=== PATIENT | female | born 1955 | race Caucasian/White ===

== ENCOUNTER → 2016-08-21 | Outpatient (CLI) | payer MEDICARE, BC ==
[~2016-08-21] MED LIST: ALDACTONE 25MG25 MG PO; PRILOSEC40 M1 PO
== END ==
LOC: LAB 10:16
DX: Z00.00 Encounter for general adult medical examination without abnormal findings (principal); I10 Essential (primary) hypertension; K90.89 Other intestinal malabsorption

== ENCOUNTER 2016-09-07 22:25 | Emergency (ER) | payer MEDICARE, BC ==
[~2016-09-07 22:25] MED LIST changes: -ALDACTONE 25MG25 MG PO
[2016-09-07] MEDS ORDERED: ALDACTONE 25MG25 MG PO (22:29)
[2016-09-08 00:49] VITALS: BP 149/74
== END 2016-09-08 00:49 | disposition home or self-care (01) ==
LOC: ED 22:25
DX: R10.11 Right upper quadrant pain (principal); R10.13 Epigastric pain; R11.10 Vomiting, unspecified; K21.9 Gastro-esophageal reflux disease without esophagitis; Z91.138 Patient's unintentional underdosing of medication regimen for other reason
CPT/HCPCS: J1885; J2405

== ENCOUNTER → 2016-09-09 | Outpatient (CLI) | payer MEDICARE, BC ==
[2016-09-08 00:49] VITALS: BP 149/74
[~2016-09-09] MED LIST changes: +ALDACTONE 25MG25 MG PO
== END ==
LOC: RAD 09:10
DX: R10.11 Right upper quadrant pain (principal); R11.10 Vomiting, unspecified; K80.20 Calculus of gallbladder without cholecystitis without obstruction; K76.89 Other specified diseases of liver

== ENCOUNTER → 2017-10-27 | Outpatient (CLI) | payer MEDICARE, BC ==
[2017-10-27 14:15] LABS: BASO # 0.1 (0.02-0.10); EOS # 0.4 (0.04-0.40); EOS % 4.1 % (1.0-5.0); HEMATOCRIT 40.2 % (37.0-47.0); HEMOGLOBIN 12.8 g/dL (12.5-16.0); MEAN CELL VOLUME 82 fl (78-100); MEAN CORPUSCULAR HEMOGLOBIN 26 pg (27-31); MEAN CORPUSCULAR HGB CONC 32 g/dL (33-37); MEAN PLATELET VOLUME 10.9 fl (7.4-10.4); MONO # 0.7 (0.20-0.80); NEU # 3.7 (1.40-6.50); PLATELET COUNT 329 K/mm3 (130-400); RED CELL DISTRIBUTION WIDTH 15.1 % (11.5-14.5); WHITE BLOOD COUNT 9.5 K/mm3 (4.8-10.8)
[2017-10-27 14:29] LABS: ALBUMIN 4.1 g/dL (3.5-5.0); BUN/CREATININE RATIO 23.6 (6.0-26.0); CALCIUM 8.8 mg/dL (8.4-10.2); POTASSIUM 3.7 mmol/L (3.6-5.0); TOTAL BILIRUBIN 0.3 mg/dL (0.2-1.3); TOTAL PROTEIN 7.9 g/dL (6.3-8.2)
[2017-10-27 14:50] LABS: LYMPH# 4.6 (1.50-4.00)
[2017-10-27 15:41] LABS: ERYTHROCYTE SEDIMENTATION RATE 30 mm/hr (0-30)
== END ==
LOC: LAB 13:51
PROVIDERS: Internal Medicine
DX: Z00.00 Encounter for general adult medical examination without abnormal findings (principal); Z12.11 Encounter for screening for malignant neoplasm of colon; K90.9 Intestinal malabsorption, unspecified

== ENCOUNTER → 2019-04-12 | Outpatient (CLI) | payer MEDICARE, BC ==
[2019-04-12 17:20] LABS: BASO # 0.1 (0.02-0.10); EOS # 0.3 (0.04-0.40); EOS % 3.2 % (1.0-5.0); HEMATOCRIT 40.2 % (37.0-47.0); HEMOGLOBIN 12.5 g/dL (12.5-16.0); LYMPH# 3.5 (1.50-4.00); MEAN CELL VOLUME 79 fl (78-100); MEAN CORPUSCULAR HGB CONC 31 g/dL (33-37); MEAN PLATELET VOLUME 10.7 fl (7.4-10.4); MONO # 0.6 (0.20-0.80); NEU # 3.7 (1.40-6.50); PLATELET COUNT 345 K/mm3 (130-400); RED BLOOD COUNT 5.12 M/mm3 (4.10-5.30); RED CELL DISTRIBUTION WIDTH 16.6 % (11.5-14.5); WHITE BLOOD COUNT 8.1 K/mm3 (4.8-10.8)
[2019-04-12 17:33] LABS: POTASSIUM 4.2 mmol/L (3.5-5.1)
[2019-04-12 17:34] LABS: CALCIUM 9.5 mg/dL (8.3-10.5)
[2019-04-12 17:35] LABS: TOTAL PROTEIN 7.6 g/dL (6.2-8.1)
[2019-04-12 17:37] LABS: TOTAL BILIRUBIN 0.3 mg/dL (0.2-1.2)
[2019-04-12 18:23] LABS: ERYTHROCYTE SEDIMENTATION RATE 38 mm/hr (0-30); MEAN CORPUSCULAR HEMOGLOBIN 24 pg (27-31)
== END ==
LOC: LAB 16:56
PROVIDERS: Internal Medicine
DX: I10 Essential (primary) hypertension (principal); G35 Multiple sclerosis; E78.2 Mixed hyperlipidemia; K90.9 Intestinal malabsorption, unspecified; R20.2 Paresthesia of skin

== ENCOUNTER → 2019-05-17 | Outpatient (CLI) | payer MEDICARE, BC | LOC: LAB 15:05 | DX: G35 Multiple sclerosis (principal) ==

== ENCOUNTER → 2020-06-22 | Outpatient (CLI) | payer MEDICARE, BC | LOC: LAB 16:31 | DX: K90.9 Intestinal malabsorption, unspecified (principal) ==

== ENCOUNTER → 2022-01-03 | Outpatient (CLI) | payer MEDICARE | LOC: LAB 14:56 | DX: E53.8 Deficiency of other specified B group vitamins (principal) ==

== ENCOUNTER → 2022-06-25 | Outpatient (CLI) | payer MEDICARE ==
[2022-06-25 15:25] LABS: MAGNESIUM 2.1 mg/dL (1.60-2.60)
== END ==
LOC: LAB 14:46
PROVIDERS: Internal Medicine
DX: Z12.31 Encounter for screening mammogram for malignant neoplasm of breast (principal); Z00.00 Encounter for general adult medical examination without abnormal findings; I10 Essential (primary) hypertension; K21.9 Gastro-esophageal reflux disease without esophagitis; K90.9 Intestinal malabsorption, unspecified; J45.20 Mild intermittent asthma, uncomplicated; G35 Multiple sclerosis; R73.03 Prediabetes; E78.2 Mixed hyperlipidemia

== ENCOUNTER → 2024-01-06 | Outpatient (CLI) | payer MEDICARE, OTHER | LOC: LAB 10:41 | DX: I10 Essential (primary) hypertension (principal) ==